=== PATIENT | male | born 1965 | race Caucasian/White ===

== ENCOUNTER 2022-10-08 16:47 | Emergency (ER) | payer MEDICAID ==
[2022-10-08] MEDS ORDERED: Sodium Chloride 0.9% 10 ML Syringe FLUSH PRN (16:57)
[2022-10-08] MEDS ORDERED: Aspirin 81 MG Tab.Chew PO STA (16:59)
[2022-10-08] MEDS ORDERED: Nitroglycerin 0.4 MG Tab.SL SL ONE ×2 (16:59→17:31)
[2022-10-08 17:20] LABS: ESTIMATED GFR 50 mL/min (>60)
[2022-10-08] MEDS ORDERED: Amoxicillin/Clavulanate K 875-125 MG Tab PO STA (18:21)
== END 2022-10-08 18:35 | disposition home or self-care (01) ==
LOC: FB.ED 16:47
DX: I25.10 Atherosclerotic heart disease of native coronary artery without angina pectoris (principal); E78.5 Hyperlipidemia, unspecified; I10 Essential (primary) hypertension; E66.9 Obesity, unspecified; Z72.0 Tobacco use; Z95.5 Presence of coronary angioplasty implant and graft
CPT/HCPCS: 36415; 71045; 80053; 83880; 84484; 85025; 85610; 85730; 93005; 99285; A9270; J3490

== ENCOUNTER 2023-05-01 11:32 | Emergency (ER) | payer MEDICAID ==
[2023-05-01] MEDS ORDERED: Sodium Chloride 0.9% 10 ML Syringe FLUSH PRN (11:41)
[2023-05-01] MEDS ORDERED: Aspirin 81 MG Tab.Chew PO ONE (11:42)
[2023-05-01] MEDS: Nitroglycerin 0.4 MG Tab.SL SL PRN ×2 (11:50→12:06)
[2023-05-01 11:51] LABS: BASOPHILS PERCENT AUTO 0.3 % (0.3-3.8); EOSINOPHILS ABSOLUTE AUTO 0.3 x10-3/uL (0.0-0.6); HEMATOCRIT 46.7 % (38.3-50.1); HEMOGLOBIN 15.9 g/dL (12.9-17.7); LYMPHOCYTES ABSOLUTE AUTO 1.8 x10-3/uL (0.5-4.5); MEAN CORPUSCULAR VOLUME 88.2 fL (80.8-98.7); MEAN PLATELET VOLUME 8.3 fL (6.7-11.0); MONOCYTES PERCENT AUTO 7.8 % (5.5-15.2); NEUTROPHILS ABSOLUTE AUTO 9.5 x10-3/uL (1.7-6.9); NEUTROPHILS PERCENT AUTO 75.9 % (40.3-71.8); PLATELET COUNT,PLT 251 x10(3)uL (117-477); RED CELL DISTRIBUTION WIDTH 14.7 % (12.4-15.0); WHITE BLOOD CELL COUNT,WBC 12.6 x10-3/uL (3.2-10.1)
[2023-05-01] MEDS ORDERED: Ondansetron 4 MG/2 ML SDV IVPUSH ONE (11:52)
[2023-05-01 11:53] LABS: BLOOD UREA NITROGEN,BUN 38 mg/dL (7-18); BUN/CREATININE RATIO 22.4 (9-20); CALCIUM 10.4 mg/dL (8.6-10.2); CARBON DIOXIDE,CO2 22 mmol/L (21-32); CHLORIDE,CL 98 mmol/L (100-110); CREATININE 1.7 mg/dL (0.70-1.30); ESTIMATED GFR 46 mL/min (>60); GLUCOSE RANDOM 135 mg/dL (80-116); POTASSIUM,K 4.7 mmol/L (3.5-5.3); SODIUM,NA 133 mmol/L (135-145)
[2023-05-01 11:58] LABS: A/G RATIO 0.9; ALANINE AMINOTRANSFERASE,ALT 51 U/L (12-36); ALBUMIN 4.2 g/dL (3.5-5.2); ALKALINE PHOSPHATASE 124 IU/L (56-112); ASPARTATE AMNIOTRANSFERASE,AST 37 IU/L (5-25); BILIRUBIN TOTAL 0.5 mg/dL (0.1-1.3); PROTEIN TOTAL,TP 8.9 g/dL (6.0-8.0)
[2023-05-01 12:03] LABS: INR 1.05 (1.00-1.24); PROTHROMBIN TIME 10.8 sec (9.0-11.1); PTT,PARTIAL THROMBOPLSTIN TIME 27.7 SECONDS (24.4-33.2)
[2023-05-01 12:07] LABS: TROPONIN I 11.4 pg/mL (4.0-60.3)
[2023-05-01] MEDS ORDERED: Sodium Chloride 0.9% 1,000 ML IV SCH (12:30)
== END 2023-05-01 14:36 | disposition home or self-care (01) ==
LOC: FB.ED 11:32
DX: I21.4 Non-ST elevation (NSTEMI) myocardial infarction (principal); I25.10 Atherosclerotic heart disease of native coronary artery without angina pectoris; I10 Essential (primary) hypertension; E78.5 Hyperlipidemia, unspecified; Z91.048 Other nonmedicinal substance allergy status
CPT/HCPCS: 36415; 71045; 80053; 83880; 84484; 85025; 85610; 85730; 93005; 96374; 99285; A9270; J2405; J7030

== ENCOUNTER 2024-12-24 10:08 | Emergency (ER) | payer MEDICAID ==
[2024-12-24 10:30] LABS: HEMOGLOBIN 13.4 g/dL (12.9-17.7); MEAN CORPUSCULAR HEMOGLOBIN 29.1 pg (27.0-33.3); MEAN CORPUSCULAR HGB CONC 33.6 g/dL (28.7-35.3); MEAN CORPUSCULAR VOLUME 86.7 fL (80.8-98.7); MEAN PLATELET VOLUME 8.3 fL (6.7-11.0); PLATELET COUNT,PLT 253 x10(3)uL (117-477); RED BLOOD CELL COUNT 4.61 x10(6)uL (3.90-5.90); RED CELL DISTRIBUTION WIDTH 14.5 % (12.4-15.0); WHITE BLOOD CELL COUNT,WBC 10.5 x10-3/uL (3.2-10.1)
[2024-12-24 10:32] LABS: BLOOD UREA NITROGEN,BUN 24 mg/dL (7-18); BUN/CREATININE RATIO 17.1 (9-20); CALCIUM 9.7 mg/dL (8.6-10.2); CARBON DIOXIDE,CO2 24 mmol/L (21-32); CHLORIDE,CL 101 mmol/L (100-110); CREATININE 1.4 mg/dL (0.70-1.30); EST CRCL DRUG DOSING (CG) 56.81 mL/min; ESTIMATED GFR 58 mL/min (>60); GLUCOSE RANDOM 118 mg/dL (80-116); SODIUM,NA 136 mmol/L (135-145)
[2024-12-24] MEDS: Ondansetron 4 MG/2 ML SDV IVPUSH ONE (10:36)
[2024-12-24] MEDS: Sodium Chloride 0.9% 10 ML Syringe FLUSH PRN (10:37)
[2024-12-24 10:38] LABS: A/G RATIO 0.9; ALANINE AMINOTRANSFERASE,ALT 20 U/L (12-36); ALBUMIN 3.9 g/dL (3.5-5.2); ALKALINE PHOSPHATASE 120 IU/L (56-112); ASPARTATE AMNIOTRANSFERASE,AST 22 IU/L (5-25); BILIRUBIN TOTAL 0.6 mg/dL (0.1-1.3); MAGNESIUM 1.6 mg/dL (1.8-2.5); PROTEIN TOTAL,TP 8.4 g/dL (6.0-8.0)
[2024-12-24] MEDS: Pantoprazole 40 MG Vial IVPUSH ONE (10:38)
[2024-12-24 10:41] LABS: C-REACTIVE PROTEIN 0.52 mg/dL (<0.50); LYMPHOCYTES PERCENT MAN 5 % (13-37); MONOCYTES PERCENT MAN 2 % (4-12); SEG NEUTROPHILS PERCENT MAN 93 % (46-82); TROPONIN I 13.2 pg/mL (4.0-60.3)
[2024-12-24 10:42] LABS: LACTIC ACID 0.7 mmol/L (0.4-2.0)
[2024-12-24] MEDS: Sodium Chloride 0.9% 1,000 ML IV ONE (10:50)
== END 2024-12-24 13:20 | disposition home or self-care (01) ==
LOC: FB.ED 10:08
DX: K80.00 Calculus of gallbladder with acute cholecystitis without obstruction (principal); I10 Essential (primary) hypertension; I25.2 Old myocardial infarction; E11.9 Type 2 diabetes mellitus without complications; E78.00 Pure hypercholesterolemia, unspecified; Z95.5 Presence of coronary angioplasty implant and graft; Z79.02 Long term (current) use of antithrombotics/antiplatelets; Z79.899 Other long term (current) drug therapy; Z91.048 Other nonmedicinal substance allergy status
CPT/HCPCS: 36415; 71046; 74176; 80053; 83605; 83690; 83735; 84484; 85025; 86140; 93005; 96361; 96374; 96375; 99285; J2405; J2470; J7030

== ENCOUNTER 2024-12-29 17:09 | Emergency (ER) | payer MEDICAID, OTHER ==
[2024-12-29] MEDS ORDERED: Sodium Chloride 0.9% 10 ML Syringe FLUSH PRN (17:13)
[2024-12-29] MEDS: LORazepam 2 MG/ML SDV IVPUSH STA (17:27)
[2024-12-29 17:31] LABS: HEMATOCRIT 42.8 % (38.3-50.1); HEMOGLOBIN 14.6 g/dL (12.9-17.7); MEAN CORPUSCULAR HEMOGLOBIN 29.4 pg (27.0-33.3); MEAN CORPUSCULAR HGB CONC 34.1 g/dL (28.7-35.3); MEAN CORPUSCULAR VOLUME 86.1 fL (80.8-98.7); MEAN PLATELET VOLUME 8.5 fL (6.7-11.0); PLATELET COUNT,PLT 322 x10(3)uL (117-477); RED BLOOD CELL COUNT 4.98 x10(6)uL (3.90-5.90); RED CELL DISTRIBUTION WIDTH 14.5 % (12.4-15.0); WHITE BLOOD CELL COUNT,WBC 16.4 x10-3/uL (3.2-10.1)
[2024-12-29 17:35] LABS: BLOOD UREA NITROGEN,BUN 29 mg/dL (7-18); BUN/CREATININE RATIO 16.1 (9-20); CALCIUM 10.6 mg/dL (8.6-10.2); CARBON DIOXIDE,CO2 19 mmol/L (21-32); CHLORIDE,CL 96 mmol/L (100-110); CREATININE 1.8 mg/dL (0.70-1.30); ESTIMATED GFR 43 mL/min (>60); GLUCOSE RANDOM 142 mg/dL (80-116); POTASSIUM,K 3.5 mmol/L (3.5-5.3); SODIUM,NA 136 mmol/L (135-145)
[2024-12-29 17:47] LABS: A/G RATIO 0.8; ALANINE AMINOTRANSFERASE,ALT 43 U/L (12-36); ALBUMIN 3.9 g/dL (3.5-5.2); ALKALINE PHOSPHATASE 119 IU/L (56-112); ASPARTATE AMNIOTRANSFERASE,AST 40 IU/L (5-25); BILIRUBIN TOTAL 0.6 mg/dL (0.1-1.3); PROTEIN TOTAL,TP 8.9 g/dL (6.0-8.0); TROPONIN I 26.4 pg/mL (4.0-60.3)
[2024-12-29 17:51] LABS: EOSINOPHILS PERCENT MAN 2 % (0-5); LYMPHOCYTES PERCENT MAN 19 % (13-37); MONOCYTES PERCENT MAN 8 % (4-12); SEG NEUTROPHILS PERCENT MAN 71 % (46-82)
[2024-12-29] MEDS: Sodium Chloride 0.9% 1,000 ML IV SCH (18:04)
== END 2024-12-29 19:24 | disposition home or self-care (01) ==
LOC: FB.ED 17:09
DX: N17.9 Acute kidney failure, unspecified (principal); E86.0 Dehydration; E11.40 Type 2 diabetes mellitus with diabetic neuropathy, unspecified; I10 Essential (primary) hypertension; I25.2 Old myocardial infarction; E78.00 Pure hypercholesterolemia, unspecified; K21.9 Gastro-esophageal reflux disease without esophagitis; Z79.02 Long term (current) use of antithrombotics/antiplatelets; Z79.899 Other long term (current) drug therapy; Z91.048 Other nonmedicinal substance allergy status
CPT/HCPCS: 71045; 80053; 83880; 84484; 85025; 93005; 96361; 96374; 99285; J2060; J7030

== ENCOUNTER 2025-06-11 09:27 | Emergency (ER) | payer MEDICAID ==
[2025-06-11] MEDS ORDERED: Sodium Chloride 0.9% 10 ML Syringe FLUSH PRN (09:48)
[2025-06-11 10:17] LABS: BASOPHILS ABSOLUTE AUTO 0.0 x10-3/uL (0.0-0.3); BASOPHILS PERCENT AUTO 0.4 % (0.3-3.8); EOSINOPHILS ABSOLUTE AUTO 0.1 x10-3/uL (0.0-0.6); EOSINOPHILS PERCENT AUTO 1.3 % (0.1-6.8); LYMPHOCYTES ABSOLUTE AUTO 1.4 x10-3/uL (0.5-4.5); LYMPHOCYTES PERCENT AUTO 14.4 % (15.8-45.3); MEAN PLATELET VOLUME 8.2 fL (6.7-11.0); MONOCYTES ABSOLUTE AUTO 0.7 x10-3/uL (0.0-1.2); MONOCYTES PERCENT AUTO 7.4 % (5.5-15.2); NEUTROPHILS ABSOLUTE AUTO 7.3 x10-3/uL (1.7-6.9); NEUTROPHILS PERCENT AUTO 76.5 % (40.3-71.8); PLATELET COUNT,PLT 225 x10(3)uL (117-477); RED BLOOD CELL COUNT 4.76 x10(6)uL (3.90-5.90); RED CELL DISTRIBUTION WIDTH 15.7 % (12.4-15.0); WHITE BLOOD CELL COUNT,WBC 9.5 x10-3/uL (3.2-10.1)
[2025-06-11] MEDS: Ketorolac 30 MG/ML SDV IVPUSH ONE (10:23)
[2025-06-11 10:35] LABS: BLOOD UREA NITROGEN,BUN 28 mg/dL (7-18); CARBON DIOXIDE,CO2 23 mmol/L (21-32); CHLORIDE,CL 104 mmol/L (100-110); CREATININE 1.4 mg/dL (0.70-1.30); ESTIMATED GFR 58 mL/min (>60); GLUCOSE RANDOM 102 mg/dL (80-116); LACTIC ACID 1.1 mmol/L (0.4-2.0); POTASSIUM,K 4.5 mmol/L (3.5-5.3); SODIUM,NA 139 mmol/L (135-145)
[2025-06-11 10:42] LABS: A/G RATIO 0.9; ALANINE AMINOTRANSFERASE,ALT 22 U/L (12-36); ASPARTATE AMNIOTRANSFERASE,AST 18 IU/L (5-25); BILIRUBIN TOTAL 0.4 mg/dL (0.1-1.3); PROTEIN TOTAL,TP 7.7 g/dL (6.0-8.0)
[2025-06-11 13:04] LABS: GLUCOSE,URINE NORMAL (NORMAL); OCCULT BLOOD,URINE NEGATIVE (NEGATIVE)
[2025-06-11 13:18] LABS: APPEARANCE,URINE CLEAR (CLEAR)
[2025-06-11 13:19] LABS: SQUAMOUS EPITHELIAL CELLS,UR RARE (NS,R,O)
== END 2025-06-11 13:40 | disposition home or self-care (01) ==
LOC: FB.ED 09:27
DX: K57.32 Diverticulitis of large intestine without perforation or abscess without bleeding (principal); N30.01 Acute cystitis with hematuria; E78.00 Pure hypercholesterolemia, unspecified; I10 Essential (primary) hypertension; I25.2 Old myocardial infarction; K21.9 Gastro-esophageal reflux disease without esophagitis; E11.9 Type 2 diabetes mellitus without complications; F17.210 Nicotine dependence, cigarettes, uncomplicated; Z91.048 Other nonmedicinal substance allergy status; Z79.02 Long term (current) use of antithrombotics/antiplatelets; Z79.899 Other long term (current) drug therapy
CPT/HCPCS: 74176; 80053; 81001; 83605; 83690; 85025; 86140; 96361; 96374; 99284; J1885; J7030

== ENCOUNTER 2025-07-14 07:46 | Emergency (ER) | payer MEDICAID, OTHER ==
[2025-07-14] MEDS ORDERED: Sodium Chloride 0.9% 10 ML Syringe FLUSH PRN (07:53)
[2025-07-14 08:07] LABS: MEAN PLATELET VOLUME 8.2 fL (6.7-11.0); PLATELET COUNT,PLT 315 x10(3)uL (117-477); RED BLOOD CELL COUNT 5.36 x10(6)uL (3.90-5.90); RED CELL DISTRIBUTION WIDTH 15.5 % (12.4-15.0); WHITE BLOOD CELL COUNT,WBC 14.4 x10-3/uL (3.2-10.1)
[2025-07-14] MEDS: Nitroglycerin 0.4 MG Tab.SL SL PRN (08:12)
[2025-07-14 08:13] LABS: BLOOD UREA NITROGEN,BUN 38 mg/dL (7-18); CARBON DIOXIDE,CO2 16 mmol/L (21-32); CHLORIDE,CL 104 mmol/L (100-110); CREATININE 1.8 mg/dL (0.70-1.30); ESTIMATED GFR 43 mL/min (>60); GLUCOSE RANDOM 159 mg/dL (80-116); POTASSIUM,K 4.3 mmol/L (3.5-5.3); SODIUM,NA 137 mmol/L (135-145)
[2025-07-14] MEDS: Heparin Sodium 5,000 Units/ML Vial IVPUSH ONE (08:15)
[2025-07-14 08:19] LABS: A/G RATIO 1.0; ALANINE AMINOTRANSFERASE,ALT 26 U/L (12-36); ASPARTATE AMNIOTRANSFERASE,AST 22 IU/L (5-25); BILIRUBIN TOTAL 0.4 mg/dL (0.1-1.3); PROTEIN TOTAL,TP 8.0 g/dL (6.0-8.0)
[2025-07-14 08:20] LABS: PTT,PARTIAL THROMBOPLSTIN TIME 25.0 SECONDS (24.4-33.2)
[2025-07-14 08:22] LABS: INR 1.01 (1.00-1.24)
[2025-07-14] MEDS ORDERED: Heparin Sodium/0.45% NaCl 500 ML IV SCH (08:30)
[2025-07-14 08:32] LABS: EOSINOPHILS PERCENT MAN 1 % (0-5); LYMPHOCYTES % ATYPICAL MANUAL 3 % (0-0); LYMPHOCYTES PERCENT MAN 10 % (13-37); MONOCYTES PERCENT MAN 19 % (4-12); SEG NEUTROPHILS PERCENT MAN 67 % (46-82)
[2025-07-14] MEDS: Heparin Sodium/0.45% NaCl 500 ML IV SCH (08:35)
== END 2025-07-14 09:05 ==
LOC: FB.ED 07:46
DX: I21.3 ST elevation (STEMI) myocardial infarction of unspecified site (principal); I25.2 Old myocardial infarction; I10 Essential (primary) hypertension; E78.00 Pure hypercholesterolemia, unspecified; E66.9 Obesity, unspecified; E11.40 Type 2 diabetes mellitus with diabetic neuropathy, unspecified; Z98.49 Cataract extraction status, unspecified eye; Z90.49 Acquired absence of other specified parts of digestive tract; Z91.09 Other allergy status, other than to drugs and biological substances; Z79.899 Other long term (current) drug therapy
CPT/HCPCS: 71045; 80053; 83735; 84484; 85025; 85610; 85730; 86140; 92977; 93005; 96365; 96375; 99285; A9270; J1644; J2270; J3101